=== PATIENT | female | born 1945 | race Caucasian/White ===

== ENCOUNTER 2018-04-18 18:17 | Observation (INO) | payer MEDICARE ==
[~2018-04-18] VITALS: Ht 149.9 cm; Wt 50.2 kg
--- NOTE | ~2018-04-18 | HP ---
PATIENT: JANENE ABBOTT MEDICAL RECORD: [id number] ACCOUNT: [id number] LOCATION:[address] : 41 ADMISSION DATE: 04/18/18 HISTORY AND PHYSICAL EXAMINATION DIAGNOSES: 1. Non-Q-wave myocardial infarction. 2. Coronary artery disease. HISTORY OF PRESENT ILLNESS: Mrs. Abbott presents with nausea, vomiting, and chest pain. This has been going on for 3 days. Her troponin is positive for non-Q-wave myocardial infarction. PHYSICAL EXAMINATION: GENERAL APPEARANCE: Well-nourished, well-developed, appears stated age. Level of distress, comfortable. PSYCHIATRIC: Mental status, alert, normal affect. Orientation, oriented to time, place and person. EYES: Lids and conjunctiva, noninjected. No discharge, no pallor. ENT: Lips, teeth, gums, normal dentition. Oropharynx, no cyanosis, no pallor. NECK: Carotid arteries, bilateral normal upstroke, no bruits, no thrills. JUGULAR VEINS: No jugular venous pressure or distention. CERVICAL LYMPH NODES: Nontender, nonenlarged. THYROID: Not enlarged. Nontender. No nodules. LUNGS: Respiratory effort, unlabored. CHEST: Normal curvature. No thoracic deformity. No chest wall tenderness. Percussion, resonant. Auscultation, clear. No wheezes, no rales, no rhonchi. CARDIOVASCULAR: Precordial exam, nondisplaced. No heaves or pericardial thrills. Rate and rhythm, regular. Heart sounds, normal S1, normal S2. No S3, no gallop, no rub. Systolic murmur, not heard. Diastolic murmur, not heard. EXTREMITIES: No cyanosis, no edema. Peripheral pulses, full and equal in all extremities, except as noted. No bruits appreciated. ABDOMEN: Soft, nondistended. Normal aorta. No bruit. Nontender. No masses. Liver, nontender, no hepatomegaly. Spleen, nontender, no splenomegaly. MUSCULOSKELETAL: No joint tenderness. No joint swelling. No erythema. NEUROLOGICAL: Normal gait, normal strength, normal tone. SKIN: Warm and dry. REVIEW OF SYSTEMS: The patient reports easy bruising but reports no swollen glands. The patient reports no fever, no night sweats, no significant weight gain, no significant weight loss. No significant exercise tolerance. The patient reports no dry eyes, no irritation, no vision change. Patient reports no difficulty hearing and no ear pain. Patient reports no frequent nose bleeds or nose and sinus problems. Patient reports on arm pain on exertion. No shortness of breath while lying down. No history of heart murmur. Patient reports no cough, no wheezing or coughing up blood. Patient reports no abdominal pain, no vomiting. Normal appetite. No diarrhea and not vomiting blood. No nausea and no constipation. Patient reports no incontinence. No difficulty urinating. No hematuria. No increased frequency. Patient reports no muscle aches. No weakness, no arthralgias, no back pain. No swelling of the extremities. Patient reports no abnormal mole, no jaundice, no rashes. Reports no loss of consciousness. No weakness and no numbness. No seizures, dizziness, or headaches. The patient reports no depression, no sleep disturbance, feeling safe in a relationship and no alcohol abuse. Patient reports on fatigue. Reports no runny nose or sinus pressure. No itching, no hives, and no frequent HISTORY AND PHYSICAL [id number] JANENE ABBOTT sneezing. OVERALL IMPRESSION: Chest pain with non-Q-wave myocardial infarction. We will proceed with coronary angiography. Further care depends upon findings of the angiography. TRANSINT:[id number] Voice Confirmation ID: [id number] DOCUMENT ID: [id number] MAI MARTINEZ MD at 1403 CC: [id number] DICTATION DATE: 04/19/18 0853 CARTON MAKING MACHINIST: 04/19/18 1055 DIS IN 04/21/18 [id number] [place] [address]
--- NOTE | ~2018-04-18 | HEMODYNAMI ---
PATIENT:JANENE ABBOTT MEDICAL RECORD: [id number] : 41 [facility] [id number] ADMISSION DATE: 04/18/18 Generatedon:04/19/201810:57 Patient name: JANENE ABBOTT Patient #: [id number] SSN: DO B: 1945 Date of study: 04/19/2018 Page: Of Hemodynamic Procedure Report Patient Data Patient Demographics Procedure consent was obtained First Name: JANENE Gender: Female Last Name: MILENA : 1945 Patient #: [id number] Age: 72 year(s) Race: Unknown Additional ID: [id number] Contact details [address]: [address] [place] [address] State: [place] City: [place] Zip code: [address] Past Medical History Allergies Allergen Reaction Date Comments Reported Other allergy 04/19/2018 STRAWBERRIES Admission Admission Data Admission Date: 04/18/2018 Admission Time: 23:47 Room #: D.2117 Lab Results Lab Result Date: 04/19/2018 Lab Result Time: 0:00 Biochemistry Name Units Result Min Max BUN mg/dl 12 --(-*--)-- 7 18 Creatinine mg/dl 0.7 --(*---)-- 0.6 1.3 CBC Name Units Result Min Max Hemoglobin g/dl 12.5 *-(----)-- 13.5 17.5 Procedure Procedure Types Cath Procedure Diagnostic Procedure [facility] w/Coronaries Sedation Charges Moderate Sedation up to 15 minutes PCI Procedure PTCA PTCA Initial Procedure Description Procedure Date Procedure Date: 04/19/2018 Procedure Start Time: 10:27 Procedure End Time: 10:52 Procedure Staff Name Function Bijan Gallego MD Performing Physician Sadia Beltran RT Monitor Lindsey Winn RT Scrub Jeremy Gilbert RN Nurse Procedure Data Cath Procedure Fluoroscopy Diagnostic fluoroscopy Total fluoroscopy Time: 8.9 time: 8.9 min min Diagnostic fluoroscopy Total fluoroscopy dose: 615 dose: 615 mGy mGy Contrast Material Contrast Material Type Amount (ml) Isovue 300 158 Entry Location Entry Primary Successful Side Size Upsize Upsize Entry Closure Succes sful Closure Location (Fr) 1 (Fr) 2 (Fr) Remarks Device Remarks Femoral Right 6 Fr Exoseal artery Short Estimated blood loss: 10 ml Diagnostic catheters Device Type Used For End Catheter Placement MULTIPACK Pigtail 5 Fr Procedure catheter MULTIPACK JL 4.0 5Fr Procedure catheter MULTIPACK 3DRC 5Fr Procedure catheter Procedure Complications No complications Procedure Medications Medication Administration Route Dosage Oxygen NC 2 l/min Lidocaine 2% added to field 20 Heparin Flush Bag added to field 2 bags (1000units/500ml NS) 0.9% NaCl I.V. 100 ml/hr Heparin Bolus I.V. 4000 units Integrilin (Bolus I.V. 4.5 ml 2mg/ml) Versed I.V. 1 mg Fentanyl I.V. 50 mcg Plavix P.O. 600 mg Hemodynamics Rest HGB: 12.5 (g/dl) Heart Rate: 101 (bpm) Snapshots Pre Cath Intra NCS Post Cath Vital Signs Time Heart Resp SPO2 etCO2 NIBP (mmHg) Rhythm Pain Sedation Rate (ipm) (%) (mmHg) Status Level (bpm) 10:17:21 97 15 99 0 188/79(138) NSR 0 (11) 10(A) , No pain 10:22:07 92 24 100 33.6 192/79(112) NSR 0 (11) 10(A) , No pain 10:27:27 86 12 100 37.3 160/73(119) NSR 0 (11) 9(A) , No pain 10:32:12 80 13 99 37.3 144/63(99) NSR 0 (11) 9(A) , No pain 10:36:54 79 13 99 41.8 128/50(88) NSR 0 (11) 9(A) , No pain 10:41:35 80 14 99 40.3 126/49(80) NSR 0 (11) 9(A) , No pain 10:46:12 83 13 99 38.1 140/60(111) NSR 0 (11) 9(A) , No pain 10:51:29 83 20 99 37.3 147/59(100) NSR 0 (11) 10(A) , No pain Medications Time Medication Route Dose Verified Delivered Reason Notes Effectiveness by by 10:19:37 Oxygen NC 2 Bijan Luna used for l/min Julián Gilbert RN procedure 10:19:45 Lidocaine 2% added 20ml Bijan Thakkar for local to vial Julián Gallego MD anesthetic field 10:19:51 Heparin Flush added 2 Bijan Thakkar used for Bag to bags Julián Gallego MD procedure (1000units/500ml field NS) 10:20:01 0.9% NaCl I.V. 100 Bijan Luna Per physician ml/hr Julián Gilbert RN 10:25:42 Versed I.V. 1 mg Bijan Luna for sedation Julián Gilbert RN 10:25:48 Fentanyl I.V. 50 Bijan Cruzie for sedation mcg Julián Gilbert RN 10:30:38 Heparin Bolus I.V. 4000 Bijan Luna for verifi ed units Julián Gilbert RN anticoagulation with dr gallego 10:34:26 Integrilin I.V. 4.5 Bijan Luna for Wasted (Bolus 2mg/ml) ml Julián Gilbert RN antiplatelet 5.6 ml therapy of vial 10:50:41 Plavix P.O. 600 Bijan Luna for mg Julián Gilbert RN antiplatelet therapy Procedure Log Time Note 9:54:14 Jeremy Gilbert RN sent for patient. Start room use. 9:54:15 Time tracking: Regular hours (M-F 7:00 - 5:00) 9:54:20 Plan of Care:Hemodynamics will remain stable., Cardiac rhythm will remain stable., Comfort level will be maintained., Respiratory function will remain adequate., Patient/ family verbilizes understanding of procedure., Procedure tolerated without complication., Recovers from procedure without complications.. 10:02:47 Signed procedure consent form obtained from patient. 10:03:27 Patient allergic to Other allergySTRAWBERRIES 10:03:46 Lab Result : BUN 12 mg/dl 10:03:46 Lab Result : Hemoglobin 12.5 g/dl 10:03:46 Lab Result : Creatinine 0.7 mg/dl 10:11:57 Patient received from PCU to CCL 1 Alert and oriented. Tansferred to table in Supine position. 10:11:58 Warm blankets applied, and leobardo hugger turned on for patient comfort. 10:11:59 Correct patient and procedure confirmed by team. 10:11:59 ECG and BP/O2 sat monitors applied to patient. 10:16:26 Vital chart was started 10:16:27 Baseline sample Acquired. 10:19:37 Oxygen 2 l/min NC was administered by Jeremy Gilbert RN; used for procedure; 10:19:45 Lidocaine 2% 20ml vial added to field was administered by Bijan Gallego MD; for local anesthetic; 10:19:51 Heparin Flush Bag (1000units/500ml NS) 2 bags added to field was administered by Bijan Gallego MD; used for procedure; 10:20:01 0.9% NaCl 100 ml/hr I.V. was administered by Jeremy Gilbert RN; Per physician; 10:23:11 Full Disclosure recording started 10:23:22 Pre-procedure instructions explained to patient. 10:23:22 Pre-op teaching completed and patient verbalized understanding. 10:23:54 Patient NPO since Midnight. 10:23:57 Is the patient allergic to Iodine/contrast media? No. 10:24:00 Is patient on blood thinner?Unknown 10:24:01 Patient diabetic? No. 10:24:04 Patient not . Patient is over age 55. 10:24:09 Previous problem with sedation/anesthesia? No ? 10:24:10 Snore? No 10:24:11 Sleep apnea? No 10:24:12 Deviated septum? No 10:24:13 Opens mouth fully? Yes 10:24:14 Sticks out tongue? Yes 10:24:16 Airway obstruction? No ? 10:24:21 Dentures? No ? 10:24:24 Pre procedure: right dorsailis pedis pulse 2+ Normal; easily identifiable; not easily obliterated 10:24:26 Patient pain scale 0/10 ?. 10:24:34 IV patent on arrival in left forearm with 0.9% NaCl at [facility]. 10:24:37 Lab results completed and on chart. 10:24:41 Right groin area was prepped with chlora-prep and draped in sterile fashion 10:24:42 Alarms reviewed by R. N. 10:24:43 Sharps counted by scrub and verified by R.N. 10:24:49 --------ALL STOP TIME OUT------ 10:24:50 Final Timeout: patient, procedure, and site verified with staff and physician. All members of the team are in agreement. 10:24:52 Right groin site verified by team. 10:24:55 Physical assessment completed. ASA score P 2 - A patient with mild systemic disease as per Bijan Gallego MD. 10:25:05 Sedation plan: IV Moderate Sedation Medication:Versed, Fentanyl 10:25:11 Use device set Femoral Dx 10:25:12 ACIST Syringe (71791) opened to sterile field. 10:25:13 Bag Decanter (2002S) opened to sterile field. 10:25:15 ACIST Hand Control (69510) opened to sterile field. 10:25:16 ACIST Manifold (72594) opened to sterile field. 10:25:17 Tegaderm 4 x 4 (1626W) opened to sterile field. 10:25:18 Medline Cath Pack ([id number]) opened to sterile field. 10:25:18 DIAGNOSTIC WIRE .035 260cm J wire (919598) opened to sterile field. 10:25:20 DIAGNOSTIC Multipack 5Fr catheter set (GD5396) opened to sterile field. 10:25:42 Versed 1 mg I.V. was administered by Jeremy Gilbert RN; for sedation; 10:25:48 Fentanyl 50 mcg I.V. was administered by Jeremy Gilbert RN; for sedation; 10:27:13 Zero performed for pressure channel P1 10:27:24 SHEATH 6FR [place] (KJF608) opened to sterile field. 10:27:29 Zero performed for pressure channel P1 10:27:32 Procedure started. 10:27:35 Local anesthetic to right femoral artery with Lidocaine 2% by Bijan Gallego MD.INITIAL ACCESS ONLY 10:27:43 A 6 Fr Short sheath was inserted into the Right Femoral artery 10:27:52 A MULTIPACK Pigtail 5 Fr catheter was advanced over the wire and used for Procedure. 10:28:01 Injector settings: Ml/sec: 10, Volume: 20, 10:28:02 LV gram done using FAIRCHILD 10:28:27 EF : 60 % 10::28 Catheter removed. 10:28:32 A MULTIPACK JL 4.0 5Fr catheter was advanced over the wire and used for Procedure. 10:29:51 Catheter removed. 10::55 A MULTIPACK 3DRC 5Fr catheter was advanced over the wire and used for Procedure. 10:30:01 INFLATOR Merit BasixCompak (SL9245) opened to sterile field. 10:30:38 Heparin Bolus 4000 units I.V. was administered by Jeremy Gilbert RN; for anticoagulation; verified with dr gallego 10:30:41 RCA angiography performed. 10:30:43 Catheter removed. 10:32:04 GUIDE 6FR JL 3.5 guide catheter ([id number]) opened to sterile field. 10:32:19 6 Fr JL 3.5 guide catheter was inserted over the wire 10:32:26 WHISPER 300cm guide wire ([id number]) opened to sterile field. 10:32:56 WHISPER 300 wire advanced. 10:33:21 The EMERGE OTW 1.5 x 20 balloon ([id number]) was advanced and then removed because it was opened but not used 10:33:33 WIRE AND GUIDE REMOVED FOR A SH GUIDE 10:33:43 GUIDE 6FR 6Fr JL 3.5 SH catheter ([id number]) opened to sterile field. 10:33:58 6 Fr JL 3.5 SH guide catheter was inserted over the wire 10:34:26 Integrilin (Bolus 2mg/ml) 4.5 ml I.V. was administered by Jeremy Gilbert RN; for antiplatelet therapy; Wasted 5.6 ml of vial 10:34:27 WHIPSER 300 wire advanced. 10:39:41 Wire advanced across lesion. 10:42:31 The EMERGE OTW 1.5 x 20 balloon ([id number]) was advanced and then removed because in body, not inflated 10:42:42 Balloon removed over the wire. 10:42:43 Wire removed. 10:42:43 Guide catheter removed. 10:43:15 GUIDE 6FR EBU 3.0 SH catheter ([id number]) opened to sterile field. 10:43:25 GRAPHIX 300cm 0.014 guide wire ([id number]) opened to sterile field. 10:43:39 6 Fr EBU 3 SH guide catheter was inserted over the wire 10:44:12 PT GRAPHIX 300 wire advanced. 10:45:05 PT GRAPHIX 300 wire advanced. 10:47:25 Inflation number: 2 The EMERGE OTW 1.5 x 20 balloon ([id number]) was reinflated across the Mid LAD, to 17 JUN for 0:30 (min:sec). 10:47:49 Balloon removed over the wire. 10:47:50 Wire removed. 10:47:50 Guide catheter removed. 10:47:56 EXOSEAL 6Fr (EX600) opened to sterile field. 10:48:06 Sheath removed intact; hemostasis achieved with Exoseal to the Right Femoral artery. 10:48:33 Procedure ended.(Physican Out) 10:48:44 Fluoroscopy time 08.90 minutes. 10:48:47 Fluoroscopy dose: 615 mGy 10:48:47 Flurop Dose total: 615 10:48:51 Contrast amount:Isovue 300 158ml. 10:49:58 Post-op/insertion site Right Femoral artery dressed using a 4 x 4 and Tegaderm. 10:50:01 Post right femoral artery:stable, soft, clean and dry 10:50:35 Post procedure: right dorsailis pedis pulse 2+ Normal; easily identifiable; not easily obliterated. 10:50:37 Post-procedure physical assessment completed. ASA score P 2 - A patient with mild systemic disease as per Bijan Gallego MD. 10:50:41 Plavix 600 mg P.O. was administered by Jeremy Gilbert RN; for antiplatelet therapy; 10:50:42 Post procedure rhythm: unchanged. 10:50:44 Estimated blood loss: 10 ml 10:50:46 Post procedure instruction explained to patient.Patient verbalizes understanding. 10:50:46 Patient needs reinforcement of post procedure teaching. 10:51:37 Procedure type changed to Cath procedure, Diagnostic procedure, LHC, LHC w/Coronaries, Sedation Charges, Moderate Sedation up to 15 minutes, PCI procedure, PTCA, PTCA Initial 10:52:00 Procedure and supply charges have been captured, reviewed, submitted and are correct. 10:52:03 Procedure Complication : No complications 10:52:06 Vital chart was stopped 10:52:06 See physician's report for complete and final results. 10:52:08 Report given to PCU. 10:52:10 Patient transfered to PCU with Bed. 10:52:12 Procedure ended. 10:52:12 Full Disclosure recording stopped 10:52:15 End room use (Document Last) Intervention Summary Intervention Notes Time ActionType Lesion and Equipment Action# Pressure Duration Attributes Used 10:33:21 Discard EMERGE OTW Balloon 1.5 x 20 balloon ([id number]) 10:42:31 Discard Mid LAD EMERGE OTW Balloon 1.5 x 20 balloon ([id number]) 10:47:25 Reinflate Mid LAD EMERGE OTW 2 17 00:30 balloon 1.5 x 20 balloon ([id number]) Device Usage Item Name Manufacture Quantity Catalog Number Hospital Part Current Min imal Lot# / Charge Number Stock Stock Serial# Code ACIST Acist 1 89866 539914 799501 537046 20 Syringe Medical (16647) Systems DC Devices Bag Decanter Microtek 1 2001S 775128 57598 898483 5 (2001S) Medical Inc. ACIST Hand Acist 1 15386 036649 093045 045331 5 Control Medical (67150) Systems Inc ACIST Acist 1 69822 402887 677455 912118 5 Manifold Medical (94451) Systems Inc Tegaderm 4 x 3M 1 1626W 806051 715695 706146 5 4 (1626W) Medline Cath Cardinal 1 [id number] 325108 46954 102409 5 [employer] ([id number]) DIAGNOSTIC [facility] Emanuel 1 091250 128577 579062 549803 30 WIRE .035 260cm J wire (107096) DIAGNOSTIC Cardinal 1 KX1636 606389 40557 134768 30 MultipRedlen Technologies Health 5Fr catheter set (GV6071) SHEATH 6FR Terumo 1 HJL344 001654 302398 784679 40 [place] (IJT723) MULTIPACK Cardinal 1 935292 5 Pigtail 5 Fr Health catheter MULTIPACK JL Cardinal 1 194852 5 4.0 5Fr Health catheter MULTIPACK Cardinal 1 189808 5 3DRC 5Fr Health catheter INFLATOR Merit 1 QG8869 079367 871411 537611 15 Sush.[employer] Medical BasixCompak (VQ2378) GUIDE 6FR JL Medtronic 1 [id number] 798861 81416 311772 1 3.5 guide catheter (UK2YX61) WHISWOODY Villanueva 1 [id number] 853125 972312 805226 5 300cm guide Vascular wire (5188720AJ) EMERGE OTW Daniel 1 [id number] 270154 851462 478613 5 [id number] 1.5 x 20 Scientific balloon ([id number]) GUIDE 6FR Medtronic 1 [id number] 119533 31384 098418 0 6Fr JL 3.5 SH catheter (CY0TH40OF) GUIDE 6FR Medtronic 1 [id number] 725631 70754 780352 0 EBU 3.0 SH catheter ([id number]) GRAPHIX Daniel 1 [id number] 902704 936150 955042 5 300cm 0.014 Scientific guide wire ([id number]) EXOSEAL 6Fr Cardinal 1 EX600 010495 137784 365422 10 (EX600) Health Signature Audit Adell Stage Time Signature Unsigned Intra-Procedure 04/19/2018 Sadia Beltran 10:57:00 AM RT(R) Signatures Monitor : Sadia Beltran Signature : RT Date : Time : [id number] [place] [address]
--- NOTE | ~2018-04-18 | DS ---
PATIENT:JANENE ABBOTT :41 MEDICAL RECORD: [id number] DISCHARGE SUMMARY ADMISSION DATE: 04/18/18 DISCHARGE DATE: 04/21/18 DATE OF DISCHARGE: 04/21/2018 DIAGNOSES: 1. Non-Q-wave myocardial infarction. 2. Coronary artery disease. 3. PTCA of LAD. 4. Hypertension. HOSPITAL COURSE: Ms. Abbott presents with anginal symptomatology, found to have a non-Q-wave myocardial infarction. Underwent successful PTCA of the LAD due to the extremely small caliber too small for stenting. She as well was placed on Lopressor. She had resolution of her symptomatology. Discharged home with the addition of Plavix, aspirin, Lopressor to her medical regimen. Will follow up with [facility] in 1 month. TRANSINT:[id number] Voice Confirmation ID: [id number] DOCUMENT ID: [id number] MAI MARTINEZ MD at 1403 CC: [id number] DICTATION DATE: 04/21/18 0835 PUBLICITY MANAGER: 04/21/18 1333 DIS IN 04/21/18 [facility] [address] [place] [address]
--- NOTE | ~2018-04-18 | OP ---
PATIENT NAME: JANENE ABBOTT MEDICAL RECORD: [id number] :41 LOCATION:D.M2 [address].2117 ADMISSION DATE:04/18/18 SURGEON: MAI MARTINEZ MD DATE OF OPERATION: 04/19/2018 PROCEDURES: 1. PTCA, LAD. 2. Left heart catheterization. 3. Selective coronary angiography. 4. Left ventriculogram. INDICATION: Non-Q-wave myocardial infarction. PROCEDURE IN DETAIL: After informed consent was obtained and after a detailed description of the risks, benefits as well as alternative therapies, the patient elected to proceed with angiogram and angioplasty. The right femoral area was prepped and draped in normal sterile fashion. The right femoral artery was cannulated via modified Seldinger technique with placement of 6-Libyan sheath. All catheters exchanged through this sheath. FINDINGS: The left ventriculogram was performed in standard 30-degree FAIRCHILD view, reveals good cardiac wall motion throughout all segments. Overall ejection fraction estimated at 50%. SELECTIVE CORONARY ANGIOGRAPHY: 1. Left main is with no significant angiographic disease. 2. Left anterior descending is extremely small vessel with 95% stenosis in the mid vessel. 3. The left circumflex is small vessel with no significant disease. 4. Right coronary has mild irregularities, but no flow-limiting stenosis. PTCA OF THE LAD: The balloon used was a 1.5 balloon. This yielded 0% residual stenosis. Vessel was too small for stenting. OVERALL IMPRESSION: Successful PTCA of the LAD going from 95% initial stenosis to 0% residual. TRANSINT:[id number] Voice Confirmation ID: [id number] DOCUMENT ID: [id number] MAI MARTINEZ MD at 1403 CC: [id number] DICTATION DATE: 04/19/18 1053 DOCUMENT MANAGEMENT TECHNICIAN: 04/19/18 1523 DIS IN 04/21/18 [place] [address]
[2018-04-18 21:38] LABS: BASOPHILS 0.1 % (0-2); EOSINOPHILS 0.1 % (0-7); HEMATOCRIT 41.9 % (36.0-48.0); HEMOGLOBIN 14.2 g/dL (12-16); IMMATURE GRANULOCYTES 0.1 % (0-5); LYMPHOCYTES 7.7 % (15-50); MCH 30.3 pg (26.0-34.0); MCHC 33.9 g/dL (31.0-37.0); MCV 89.5 fL (80.0-100.0); MEAN PLATELET VOLUME 11.9 fL (7.4-10.4); MONOCYTES 4.6 % (2-11); NEUTROPHILS 87.4 % (40-80); PLATELET COUNT 122 10x3/uL (130-400); RBC 4.68 10x6/uL (4.00-5.40); WBC 10.5 10x3/uL (4.8-10.8)
[2018-04-18 21:54] LABS: ALBUMIN 3.7 g/dL (3.4-5.0); ALKALINE PHOSPHATASE 71 U/L (46-116); ALT (SGPT) 18 U/L (10-68); BILIRUBIN - TOTAL 0.99 mg/dL (0.2-1.3); CALC OSMOLALITY 287 mosm/kg (275-300); CALCIUM 9.3 mg/dL (8.5-10.1); CARBON DIOXIDE 27.8 mmol/L (21.0-32.0); CHLORIDE - SERUM 109 mmol/L (98-107); CREATININE - SERUM 0.8 mg/dL (0.6-1.3); GLUCOSE 107 mg/dL (74-106); POTASSIUM - SERUM 3.8 mmol/L (3.5-5.1); PROTEIN - SERUM 6.5 g/dL (6.4-8.2); SODIUM 144 mmol/L (136-145); UREA NITROGEN 14 mg/dL (7-18); eGFR NON AFRICAN AMERICAN 74 mL/min (90-120)
[2018-04-18 22:20] LABS: AMYLASE - SERUM 75 U/L (25-115); CKMB 7.6 U/L (0.0-3.6); CREATINE KINASE 355 UL (21-215); LIPASE 119 U/L (73-393)
[2018-04-18 22:24] LABS: TROPONIN-I 0.079 ng/mL (0.000-0.060)
[2018-04-19] VITALS (7 sets, daily range): BP systolic 148–212; BP diastolic 58–79; Ht 149.9 cm; Wt 50.2 kg
[2018-04-19] MEDS ORDERED: BAYER CHEWABLE81 MG PO (01:16)
[2018-04-19] MEDS ORDERED: ELIQUIS5 MG PO (01:16)
[2018-04-19 05:05] LABS: BASOPHILS 0.4 % (0-2); EOSINOPHILS 1.2 % (0-7); HEMATOCRIT 37.7 % (36.0-48.0); HEMOGLOBIN 12.5 g/dL (12-16); IMMATURE GRANULOCYTES 0.2 % (0-5); LYMPHOCYTES 24.9 % (15-50); MCH 29.8 pg (26.0-34.0); MCHC 33.2 g/dL (31.0-37.0); MEAN PLATELET VOLUME 11.6 fL (7.4-10.4); MONOCYTES 9.1 % (2-11); NEUTROPHILS 64.2 % (40-80); PLATELET COUNT 109 10x3/uL (130-400); RBC 4.19 10x6/uL (4.00-5.40); RDW 12.9 % (11.5-14.5)
[2018-04-19 05:26] LABS: WBC 5.2 10x3/uL (4.8-10.8)
[2018-04-19 06:50] LABS: CALC OSMOLALITY 287 mosm/kg (275-300); CARBON DIOXIDE 28.5 mmol/L (21.0-32.0); CHLORIDE - SERUM 110 mmol/L (98-107); CREATININE - SERUM 0.7 mg/dL (0.6-1.3); GLUCOSE 89 mg/dL (74-106); POTASSIUM - SERUM 3.6 mmol/L (3.5-5.1); SODIUM 145 mmol/L (136-145); UREA NITROGEN 12 mg/dL (7-18); eGFR NON AFRICAN AMERICAN 87 mL/min (90-120)
[2018-04-19 06:56] LABS: TROPONIN-I 0.088 ng/mL (0.000-0.060)
[2018-04-19 14:46] LABS: HEMATOCRIT 38.3 % (36.0-48.0)
[2018-04-19 15:20] LABS: APPEARANCE CLEAR (CLEAR); BILIRUBIN NEGATIVE (NEGATIVE); COLOR STRAW (YELLOW); GLUCOSE NEGATIVE (NEGATIVE); KETONE MODERATE mg/dL (NEGATIVE); NITRITE NEGATIVE (NEGATIVE); PROTEIN NEGATIVE (NEGATIVE); SPECIFIC GRAVITY 1.005 (1.005-1.020); UROBILINOGEN NORMAL (NORMAL)
[2018-04-19 15:23] LABS: RED CELLS - URINE OCC /hpf (0-5); WHITE CELLS - URINE RARE /hpf (0-5)
[2018-04-19 15:24] LABS: BACTERIA FEW /hpf (NONE SEEN); EPITHELIAL CELLS 0-5 /hpf (0-5)
[2018-04-20] VITALS: BP 169/73
[2018-04-20 04:00] VITALS: BP 181/70
[2018-04-20 08:15] VITALS: BP 174/71
[2018-04-20] MEDS ORDERED: ELIQUIS5 MG PO (08:48)
[2018-04-20] MEDS ORDERED: CELEBREX200 MG PO (08:49)
[2018-04-20] MEDS ORDERED: ALENDRONATE SOD40 MG PO (08:49)
[2018-04-20] MEDS ORDERED: NAPROXEN375 M1 PO (08:50)
[2018-04-20 11:21] VITALS: BP 186/74
[2018-04-20 15:19] VITALS: BP 169/78
[2018-04-20 20:00] VITALS: BP 169/64
[2018-04-21] VITALS: BP 175/65
[2018-04-21 04:00] VITALS: BP 174/70
[2018-04-21 04:28] LABS: BASOPHILS 0.2 % (0-2); EOSINOPHILS 2.3 % (0-7); HEMATOCRIT 37.1 % (36.0-48.0); HEMOGLOBIN 12.8 g/dL (12-16); IMMATURE GRANULOCYTES 0.2 % (0-5); LYMPHOCYTES 16.1 % (15-50); MCH 30.5 pg (26.0-34.0); MCHC 34.5 g/dL (31.0-37.0); MCV 88.5 fL (80.0-100.0); MEAN PLATELET VOLUME 11.1 fL (7.4-10.4); MONOCYTES 10.3 % (2-11); NEUTROPHILS 70.9 % (40-80); PLATELET COUNT 105 10x3/uL (130-400); RBC 4.19 10x6/uL (4.00-5.40); RDW 12.8 % (11.5-14.5); WBC 6.1 10x3/uL (4.8-10.8)
[2018-04-21 04:52] LABS: ALBUMIN 3.1 g/dL (3.4-5.0); ALKALINE PHOSPHATASE 65 U/L (46-116); ALT (SGPT) 19 U/L (10-68); CALC OSMOLALITY 289 mosm/kg (275-300); CALCIUM 8.9 mg/dL (8.5-10.1); CARBON DIOXIDE 27.7 mmol/L (21.0-32.0); CHLORIDE - SERUM 108 mmol/L (98-107); CREATININE - SERUM 0.6 mg/dL (0.6-1.3); GLUCOSE 95 mg/dL (74-106); POTASSIUM - SERUM 3.4 mmol/L (3.5-5.1); PROTEIN - SERUM 5.7 g/dL (6.4-8.2); SODIUM 146 mmol/L (136-145); UREA NITROGEN 11 mg/dL (7-18); eGFR NON AFRICAN AMERICAN > 90 mL/min (90-120)
[2018-04-21 08:48] VITALS: BP 151/53
[2018-04-21] MEDS ORDERED: PLAVIX75 MG PO (09:17)
[2018-04-21] MEDS ORDERED: METOPROLOL TART50 MG PO (09:18)
[2018-04-21] MEDS ORDERED: PRAVACHOL20 MG PO (09:18)
== END 2018-04-21 10:01 | disposition home or self-care (01) ==
LOC: D.ER 18:17 → D.EDHOLD 23:47 → OBSVTIME 23:47 → D.M2 23:47 → D.EDHOLD 23:47 → D.M2 23:58
PROVIDERS: Emergency Medicine; Family Medicine; Internal Medicine Interventional Cardiology; Physician Assistant Medical
DX: I21.4 Non-ST elevation (NSTEMI) myocardial infarction (principal); I25.10 Atherosclerotic heart disease of native coronary artery without angina pectoris; I10 Essential (primary) hypertension; R10.13 Epigastric pain; Z87.891 Personal history of nicotine dependence

== ENCOUNTER 2018-04-29 03:33 | Emergency (ER) | payer MEDICARE ==
[~2018-04-29] VITALS: Ht 149.9 cm; Wt 50.8 kg
[~2018-04-29 03:33] MED LIST: ALENDRONATE SOD40 MG PO; BAYER CHEWABLE81 MG PO; CELEBREX200 MG PO; ELIQUIS5 MG PO; METOPROLOL TART50 MG PO; NAPROXEN375 M1 PO; PLAVIX75 MG PO; PRAVACHOL20 MG PO
[2018-04-29 04:14] LABS: BASOPHILS 0.5 % (0-2); EOSINOPHILS 3.2 % (0-7); HEMOGLOBIN 11.6 g/dL (12-16); IMMATURE GRANULOCYTES 0.2 % (0-5); LYMPHOCYTES 27.8 % (15-50); MCH 29.9 pg (26.0-34.0); MCHC 33.1 g/dL (31.0-37.0); MCV 90.2 fL (80.0-100.0); MONOCYTES 10.1 % (2-11); NEUTROPHILS 58.2 % (40-80); RBC 3.88 10x6/uL (4.00-5.40); RDW 12.7 % (11.5-14.5); WBC 4.1 10x3/uL (4.8-10.8)
[2018-04-29 04:16] LABS: PLATELET COUNT 127 10x3/uL (130-400)
[2018-04-29 04:38] LABS: ALBUMIN 3.4 g/dL (3.4-5.0); ANION GAP 11.8 mmol/L (8-16); BILIRUBIN - TOTAL 0.5 mg/dL (0.2-1.3); CALCIUM 9.1 mg/dL (8.5-10.1); CARBON DIOXIDE 30.1 mmol/L (21.0-32.0); CREATININE - SERUM 0.8 mg/dL (0.6-1.3); POTASSIUM - SERUM 3.9 mmol/L (3.5-5.1)
[2018-04-29] MEDS ORDERED: LISINOPRIL10 MG PO (05:00)
[2018-04-29 05:11] LABS: APPEARANCE CLEAR (CLEAR); BILIRUBIN NEGATIVE (NEGATIVE); COLOR STRAW (YELLOW); GLUCOSE NEGATIVE (NEGATIVE); KETONE NEGATIVE (NEGATIVE); NITRITE NEGATIVE (NEGATIVE); PROTEIN NEGATIVE (NEGATIVE); UROBILINOGEN NORMAL (NORMAL)
== END 2018-04-29 07:00 | disposition home or self-care (01) ==
LOC: D.ER 03:33
PROVIDERS: Emergency Medicine
DX: I10 Essential (primary) hypertension (principal); R42 Dizziness and giddiness

== ENCOUNTER 2018-08-26 06:02 | Emergency (ER) | payer MEDICARE ==
[~2018-08-26] VITALS: Ht 149.9 cm; Wt 50.5 kg
[~2018-08-26 06:02] MED LIST changes: +LISINOPRIL10 MG PO
[2018-08-26 06:05] VITALS: Ht 149.9 cm; Wt 50.5 kg
[2018-08-26 06:54] LABS: BASOPHILS 0 % (0-2); EOSINOPHILS 0.9 % (0-7); HEMATOCRIT 37.9 % (36.0-48.0); HEMOGLOBIN 12.8 g/dL (12-16); IMMATURE GRANULOCYTES 0.2 % (0-5); LYMPHOCYTES 14.9 % (15-50); MCH 29.7 pg (26.0-34.0); MCHC 33.8 g/dL (31.0-37.0); MCV 87.9 fL (80.0-100.0); MONOCYTES 6.9 % (2-11); NEUTROPHILS 77.1 % (40-80); PLATELET COUNT 106 10x3/uL (130-400); RBC 4.31 10x6/uL (4.00-5.40); RDW 13.8 % (11.5-14.5); WBC 5.4 10x3/uL (4.8-10.8)
[2018-08-26 06:56] LABS: APPEARANCE CLEAR (CLEAR); BACTERIA FEW /hpf (NONE SEEN); BILIRUBIN NEGATIVE (NEGATIVE); COLOR YELLOW (YELLOW); EPITHELIAL CELLS RARE /hpf (0-5); GLUCOSE NEGATIVE (NEGATIVE); KETONE NEGATIVE (NEGATIVE); NITRITE NEGATIVE (NEGATIVE); PROTEIN 2+ mg/dL (NEGATIVE); RED CELLS - URINE 0-5 /hpf (0-5); UROBILINOGEN NORMAL (NORMAL); WHITE CELLS - URINE 0-5 /hpf (0-5)
[2018-08-26 07:05] LABS: ALBUMIN 3.4 g/dL (3.4-5.0); ANION GAP 10.9 mmol/L (8-16); BILIRUBIN - TOTAL 0.83 mg/dL (0.2-1.3); CARBON DIOXIDE 29.5 mmol/L (21.0-32.0); CREATININE - SERUM 0.8 mg/dL (0.6-1.3); POTASSIUM - SERUM 3.4 mmol/L (3.5-5.1)
[2018-08-26 07:13] LABS: TROPONIN-I 0.025 ng/mL (0.000-0.060)
[2018-08-26] MEDS ORDERED: ZOFRAN ODT4 MG/UDTAB PO (08:46)
[2018-08-26 09:28] VITALS: BP 148/69
== END 2018-08-26 09:29 | disposition home or self-care (01) ==
LOC: D.ER 06:02
PROVIDERS: Family Medicine
DX: R11.10 Vomiting, unspecified (principal); H91.3 Deaf nonspeaking, not elsewhere classified; Z86.718 Personal history of other venous thrombosis and embolism

== ENCOUNTER 2019-08-16 21:24 | Emergency (ER) | payer MEDICARE ==
[~2019-08-16] VITALS: Ht 149.9 cm; Wt 55.9 kg
[~2019-08-16 21:24] MED LIST changes: +ZOFRAN ODT4 MG/UDTAB PO
[2019-08-16 21:25] VITALS: Ht 149.9 cm; Wt 55.9 kg
[2019-08-16 22:16] LABS: BASOPHILS 0.3 % (0-2); EOSINOPHILS 1.1 % (0-7); HEMATOCRIT 40.7 % (36.0-48.0); HEMOGLOBIN 13.6 g/dL (12-16); IMMATURE GRANULOCYTES 0.2 % (0-5); MCH 30.2 pg (26.0-34.0); MCHC 33.4 g/dL (31.0-37.0); MCV 90.2 fL (80.0-100.0); MEAN PLATELET VOLUME 10.6 fL (7.4-10.4); MONOCYTES 6.4 % (2-11); PLATELET COUNT 130 10x3/uL (130-400); RBC 4.51 10x6/uL (4.00-5.40); RDW 12.8 % (11.5-14.5); WBC 6.4 10x3/uL (4.8-10.8)
[2019-08-16 22:23] LABS: INR 1.06 (0.85-1.17); PROTIME 13.3 SECONDS (11.6-15.0)
[2019-08-16 22:30] LABS: ALBUMIN 3.8 g/dL (3.4-5.0); ALKALINE PHOSPHATASE 89 U/L (46-116); ALT (SGPT) 14 U/L (10-68); BILIRUBIN - TOTAL 0.83 mg/dL (0.2-1.3); CALC OSMOLALITY 291 mosm/kg (275-300); CALCIUM 9.1 mg/dL (8.5-10.1); CARBON DIOXIDE 27.2 mmol/L (21.0-32.0); CHLORIDE - SERUM 109 mmol/L (98-107); GLUCOSE 132 mg/dL (74-106); POTASSIUM - SERUM 3.5 mmol/L (3.5-5.1); PROTEIN - SERUM 6.5 g/dL (6.4-8.2); SODIUM 145 mmol/L (136-145); UREA NITROGEN 14 mg/dL (7-18); eGFR NON AFRICAN AMERICAN 57 mL/min (90-120)
[2019-08-16 22:40] LABS: CKMB 1.4 U/L (0.0-3.6); CREATINE KINASE 103 UL (21-215); PRO BNP 219 pg/mL (0-450)
[2019-08-16 22:41] LABS: TROPONIN-I < 0.017 ng/mL (0.000-0.060)
[2019-08-16 22:49] LABS: APPEARANCE CLEAR (CLEAR); BILIRUBIN NEGATIVE (NEGATIVE); COLOR YELLOW (YELLOW); GLUCOSE NEGATIVE (NEGATIVE); KETONE NEGATIVE (NEGATIVE); NITRITE NEGATIVE (NEGATIVE); PROTEIN TRACE mg/dL (NEGATIVE); UROBILINOGEN NORMAL (NORMAL)
[2019-08-16 22:50] LABS: RED CELLS - URINE 0-5 /hpf (0-5)
[2019-08-16 22:51] LABS: BACTERIA FEW /hpf (NEGATIVE)
[2019-08-16] MEDS ORDERED: MACROBID100 MG PO (23:58)
[2019-08-17 02:44] VITALS: BP 152/85
== END 2019-08-17 02:44 | disposition home or self-care (01) ==
LOC: D.ER 21:24
PROVIDERS: Family Medicine
DX: N39.0 Urinary tract infection, site not specified (principal); I10 Essential (primary) hypertension